=== PATIENT | male | born 1965 | race Caucasian/White ===

== ENCOUNTER 2021-10-16 19:34 | Day surgery (SDC) | payer OTHER ==
[2021-10-16] MEDS ORDERED: PERCOCET TABLET 5/325MG PO ONE (19:44)
--- NOTE | 2021-10-16 19:48 | ERPHSYRPT ---
- History of Present Illness Time Seen by Provider: 10/16/21 19:38 Source: patient, family Physician History: 45 years old male with history of alcohol abuse with frequent falls presented in the ER with chief complaint of left ankle pain after he fell in the garage prior to arrival. Moderate to severe sharp pain with movements and palpation of left ankle. Also patient reports he fell this morning and hit his head without loss of consciousness. Patient is very anxious, does not want any work-up done as he is afraid of needles. Not willing to do CT head after prolonged counseling is agreeable doing CT head and x-rays but no other work-up. Denies injury anywhere else. He is not confused or altered at all. Timing/Duration: today, sudden Severity: moderate Modifying Factors: Improves With: immobilization. Worsens With: movement Associated Symptoms: denies symptoms Allergies/Adverse Reactions: Penicillins Allergy (Verified 10/16/21 19:37) Home Medications: Diltiazem HCl [Diltiazem 24Hr ER] 1 cap PO DAILY 10/16/21 [History] Losartan/Hydrochlorothiazide [Losartan-Hctz 50-12.5 mg Tab] 1 tab PO DAILY 10/16/21 [History] Omeprazole 1 cap PO DAILY 10/16/21 [History] - Review of Systems Constitutional: No Symptoms Eyes: No Symptoms Ears, Nose, & Throat: No Symptoms Respiratory: No Symptoms Cardiac: No Symptoms Abdominal/Gastrointestinal: No Symptoms Genitourinary Symptoms: No Symptoms Musculoskeletal: Deformity, Fall, Injury Skin: No Symptoms Neurological: No Symptoms Psychological: No Symptoms Endocrine: No Symptoms Hematologic/Lymphatic: No Symptoms Immunological/Allergic: No Symptoms - Nursing Vital Signs Nursing Vital Signs: Initial Vital Signs Temperature 98 F 10/16/21 19:39 Pulse Rate 81 10/16/21 19:39 Respiratory Rate 23 10/16/21 19:39 Blood Pressure 123/80 10/16/21 19:39 O2 Sat by Pulse Oximetry 100 10/16/21 19:39 Pain Scale Pain Intensity 5 - Physical Exam General Appearance: no apparent distress, alert Eye Exam: PERRL/EOMI, eyes nml inspection Ears, Nose, Throat Exam: normal ENT inspection, TMs normal, pharynx normal, moist mucous membranes Neck Exam: normal inspection, non-tender, supple, full range of motion Respiratory Exam: normal breath sounds, lungs clear Cardiovascular Exam: regular rate/rhythm, normal heart sounds Gastrointestinal/Abdomen Exam: soft, normal bowel sounds, No tenderness Back Exam: normal inspection, normal range of motion Extremity Exam: deformities (Left ankle. Intact distal neurovascular. No foot tenderness.), inflammation, limited range of motion, swelling, tenderness Neurologic Exam: alert, oriented x 3, cooperative, machine oiler II-XII nml as tested, sensation nml, other (Left forehead bruising.), No normal mood/affect, No motor deficits Skin Exam: normal color SpO2 Interpretation: normal SpO2: 96 O2 Delivery: Room Air Ordered Tests: Active Orders 24 hr Category Date Time Status NPO (ED) STAT Care 10/16/21 21:34 Active ANKLE (2V) Routine Exams 10/16/21 21:55 Ordered ANKLE (3 VIEWS) Stat Exams 10/16/21 20:08 Completed FLUOROSCOPY UP TO 1 HR Routine Exams 10/16/21 21:55 Ordered HEAD WITHOUT CONTRAST [CT] Stat Exams 10/16/21 19:43 Taken LOWER LEG Stat Exams 10/16/21 Taken Alcohol [ETHYL ALCOHOL] Stat Lab 10/16/21 22:00 Completed CBC W DIFF Stat Lab 10/16/21 22:00 Completed CMP Stat Lab 10/16/21 22:00 Completed UA W/RFX CULTURE Stat Lab 10/16/21 21:58 Ordered Medication Summary Generic Name Dose Route Start Last Admin Trade Name Freq PRN Reason Stop Dose Admin Sodium Chloride 1,000 mls @ 999 mls/hr 10/16/21 21:34 10/16/21 21:54 Sodium Chloride 0.9% 1000 Ml IV 10/16/21 22:34 999 mls/hr .Q1H1M STA Administration Discontinued Medications Generic Name Dose Route Start Last Admin Trade Name Freq PRN Reason Stop Dose Admin Sodium Chloride Confirm 10/16/21 21:52 Sodium Chloride 0.9% 1000 Ml Administered 10/16/21 21:53 Dose 1,000 mls @ ud .ROUTE .STK-MED ONE Morphine Sulfate 4 mg 10/16/21 22:00 10/16/21 22:06 Morphine Sulfate 4 Mg/Ml Injection IV 10/16/21 22:01 4 mg STAT ONE Administration Morphine Sulfate Confirm 10/16/21 22:03 Morphine Sulfate 4 Mg/Ml Injection Administered 10/16/21 22:04 Dose 4 mg .ROUTE .STK-MED ONE Ondansetron HCl 4 mg 10/16/21 22:00 10/16/21 22:05 Ondansetron Hcl 4 Mg/2 Ml Vial IV 10/16/21 22:01 4 mg STAT ONE Administration Ondansetron HCl Confirm 10/16/21 22:03 Ondansetron Hcl 4 Mg/2 Ml Vial Administered 10/16/21 22:04 Dose 4 mg .ROUTE .STK-MED ONE Oxycodone/Acetaminophen 1 tab 10/16/21 19:44 10/16/21 20:08 Oxycodone Hcl/Apap 5 Mg/325 Mg Tablet PO 10/16/21 19:45 Not Given STAT ONE Oxycodone/Acetaminophen Confirm 10/16/21 19:58 Oxycodone Hcl/Apap 5 Mg/325 Mg Tablet Administered 10/16/21 19:59 Dose 1 tab .ROUTE .STK-MED ONE Lab/Rad Data: Laboratory Result Diagrams 10/16/21 22:00 10/16/21 22:00 Laboratory Results 10/16/21 10/16/21 10/16/21 Range/Units 22:00 22:00 22:00 WBC 11.8 H (4.0-10.5) x10^3/uL RBC 3.80 L (4.1-5.6) x10^6/uL Hgb 12.6 (12.5-18.0) g/dL Hct 34.6 L (42-50) % MCV 91.1 (78-100) fL MCH 33.2 H (26-32) pg MCHC 36.4 H (32-36) g/dL RDW 12.4 (11.5-14.0) % Plt Count 296 (150-450) x10^3/uL MPV 8.1 (7.5-11.0) fL Gran % 77.9 H (36.0-66.0) % Immature Gran % (Auto) 0.5 H (0.00-0.4) % Nucleat RBC Rel Count 0.0 (0.00-0.1) % Eos # (Auto) 0.06 (0-0.5) x10^3/uL Immature Gran # (Auto) 0.06 H (0.00-0.03) x10^3u/L Absolute Lymphs (auto) 1.70 (1.0-4.6) x10^3/uL Absolute Monos (auto) 0.73 (0.0-1.3) x10^3/uL Absolute Nucleated RBC 0.00 (0.00-0.01) x10^3u/L Lymphocytes % 14.4 L (24.0-44.0) % Monocytes % 6.2 (0.0-12.0) % Eosinophils % 0.5 (0.00-5.0) % Basophils % 0.5 (0.0-0.4) % Absolute Granulocytes 9.19 H (1.4-6.9) x10^3/uL Basophils # 0.06 (0-0.4) x10^3/uL Sodium 123 L (137-145) mmol/L Potassium 3.6 (3.5-5.1) mmol/L Chloride 90 L (98-107) mmol/L Carbon Dioxide 18 L (22-30) mmol/L Anion Gap 19.4 H (5-15) MEQ/L BUN 12 (9-20) mg/dL Creatinine 0.96 (0.66-1.25) mg/dL Estimated GFR > 60.0 ML/MIN Glucose 107 H (74-106) mg/dL Calcium 8.9 (8.4-10.2) mg/dL Total Bilirubin 0.30 (0.2-1.3) mg/dL AST 34 (17-59) U/L ALT 27 (0-50) U/L Alkaline Phosphatase 51 (38-126) U/L Serum Total Protein 6.8 (6.3-8.2) g/dL Albumin 4.3 (3.5-5.0) g/dL Ethyl Alcohol 233 H (0-10) mg/dL - Progress Progress: pain not gone completely, re-examined Progress Note: 10/16/21 22:33 55 years old is evaluated for fall. Patient was reluctant to have any blood work done. I have obtained CT head which is negative for any acute trauma related findings. Nonfocal neuro exam otherwise. Patient did drink quite a bit today. Has deformity of left ankle with fracture distal fibula and dislocation, has intact distal neurovascular. Discussed with Dr. Agustin who is planning on taking patient to the OR. I have discussed with patient and convinced him about the surgery. We will obtain baseline labs and patient will be taken to the OR. Discussed with : Other Counseled pt/family regarding: diagnosis, need for follow-up, rad results - Departure Departure Disposition: Release to OR/SDC Clinical Impression: Fracture dislocation of ankle joint, Fall, Forehead contusion, Alcohol abuse Condition: Stable Critical Care Time: No Referrals: DOCTOR,NO FAMILY [NON-STAFF PHY W/O PRIVILEGES] - Follow up/PCP as directed
[2021-10-16] MEDS ORDERED: PERCOCET TABLET 5/325MG ONE (19:58)
--- NOTE | 2021-10-16 20:18 | XRAY ---
Indication: Pain following fall. Comparison: None 3 views left ankle demonstrates mild displaced lateral malleolus fracture with soft tissue swelling. Also mild subluxation of talus laterally. No other bony, articular, or soft tissue abnormalities.
[2021-10-16] MEDS ORDERED: Sodium Chloride 0.9% 1000 ML 1,000 ML IV STA (21:34)
[2021-10-16] MEDS ORDERED: Sodium Chloride 0.9% 1000 ML 1,000 ML ONE ×2 (21:52→23:22)
[2021-10-16] MEDS ORDERED: MORPHINE SULFATE 4 MG INJ IV ONE (22:00)
[2021-10-16] MEDS ORDERED: Zofran 4 MG/2 ML VIAL IV ONE (22:00)
[2021-10-16 22:03] LABS: Absolute Neutrophil Ct (ANC) 9.19 x10^3/uL (1.4-6.9); Basophil (Absolute #) 0.06 x10^3/uL (0-0.4); Eosinophil % 0.5 % (0.00-5.0); Eosinophil (Absolute #) 0.06 x10^3/uL (0-0.5); Hematocrit 34.6 % (42-50); Hemoglobin 12.6 g/dL (12.5-18.0); Lymphocytes % 14.4 % (24.0-44.0); Mean Cell Volume 91.1 fL (78-100); Mean Corpuscular Hemoglobin 33.2 pg (26-32); Mean Corpuscular Hgb Concent. 36.4 g/dL (32-36); Mean Platelet Volume 8.1 fL (7.5-11.0); Monocyte (Absolute #) 0.73 x10^3/uL (0.0-1.3); Monocytes % 6.2 % (0.0-12.0); Neutrophil % 77.9 % (36.0-66.0); Platelet Count 296 x10^3/uL (150-450); Red Cell Distribution Width 12.4 % (11.5-14.0); White Blood Count 11.8 x10^3/uL (4.0-10.5)
[2021-10-16] MEDS ORDERED: Zofran 4 MG/2 ML VIAL ONE (22:03)
[2021-10-16] MEDS ORDERED: MORPHINE SULFATE 4 MG INJ ONE (22:03)
[2021-10-16 22:23] LABS: ALBUMIN 4.3 g/dL (3.5-5.0); ALKALINE PHOSPHATASE 51 U/L (38-126); ANION GAP 19.4 MEQ/L (5-15); BLOOD UREA NITROGEN 12 mg/dL (9-20); CHLORIDE 90 mmol/L (98-107); Calcium 8.9 mg/dL (8.4-10.2); Carbon Dioxide 18 mmol/L (22-30); Creatinine 1 0.96 mg/dL (0.66-1.25); EST GLOMERULAR FILTRATION RATE > 60.0 ML/MIN; Glucose 107 mg/dL (74-106); Potassium 3.6 mmol/L (3.5-5.1); SGOT/AST 34 U/L (17-59); SGPT/ALT 27 U/L (0-50); SODIUM 123 mmol/L (137-145); Total Protein 6.8 g/dL (6.3-8.2)
[2021-10-16 22:41] LABS: INFLUENZA A NEGATIVE (NEGATIVE); INFLUENZA B NEGATIVE (NEGATIVE); RESPIRATORY SYNCTIAL VIRUS NEGATIVE (Negative); SARS-CoV-2 Xpert Express NEGATIVE (NEGATIVE)
[2021-10-16 22:49] LABS: Appearance CLEAR (CLEAR); Bilirubin NEGATIVE (NEGATIVE); Dipstick done @ ? MAIN LAB; Glucose NEGATIVE (NEGATIVE); Ketones NEGATIVE (NEGATIVE); Nitrite NEGATIVE (NEGATIVE); Ph 5.5 (5-6); Protein,Urine Dip 30 (Negative); RBC TRACE-LYSED Ery/ul (0-5); Specific Gravity 1.015 (1.005-1.025); Urobilinogen 0.2 mg/dL (0-1)
[2021-10-16 22:52] LABS: Mucus SLIGHT /HPF (NEGATIVE); RBC 0-2 /HPF (0-2); WBC 0-2 /HPF (0-5)
[2021-10-16 22:53] LABS: Urine Cultured Indicated? YES
[2021-10-16] MEDS ORDERED: Naropin 0.5% 30 ML VIAL ONE (23:08)
[2021-10-16] MEDS ORDERED: Decadron 4 MG INJ ONE ×2 (23:08→23:14)
[2021-10-16] MEDS ORDERED: SUBLIMAZE 100 MCG/2 ML ONE (23:16)
[2021-10-16] MEDS ORDERED: Versed 2 MG/2 ML Injection ONE (23:16)
[2021-10-16] MEDS ORDERED: Marcaine 0.5%/Epinephrine 10 ML IJ ONE (23:36)
[2021-10-17] MEDS ORDERED: Cleocin Phosphate IV 600 MG/4 ML ONE (00:06)
[2021-10-17] MEDS ORDERED: DIPRIVAN 200 MG/20 ML IV ONE (01:08)
[2021-10-17] MEDS ORDERED: NICODERM CQ 14 MG TOP SCH (02:00)
[2021-10-17] MEDS ORDERED: KEFZOL 1 GM/50 ML PREMIX** 1 GM/50 ML IVPB IV ONE (06:00)
[2021-10-17 07:09] VITALS: BP 148/77; PULSE 99; O2SAT 95
--- NOTE | 2021-10-17 07:31 | XRAY ---
Indication: Pain following fall. Comparison: None 2 view left lower leg demonstrates lateral malleolus fracture reported separately. No other bony, articular, or soft tissue abnormalities.
--- NOTE | 2021-10-17 07:34 | XRAY ---
Indication: ORIF left ankle fracture. Intraoperative fluoroscopy provided for 1 minute 27 seconds. 3 digital spot images submitted for interpretation demonstrates lateral fixation plate and multiple screws fixating lateral malleolus fracture in good apposition/alignment. Talar subluxation improved. Correlate with intraoperative findings/report.
--- NOTE | 2021-10-17 07:36 | XRAY ---
Indication: Frontal contusion following fall. Seizures. Multiple contiguous axial images obtained through the head without contrast. Comparison: None Age-appropriate global atrophy and minimal periventricular degenerative micro-ischemia bilaterally. No acute intracranial hemorrhage, abnormal extra-axial fluid collection, or mass effect. Fourth ventricle is midline without hydrocephalus. Bony calvarium intact. Mild mucosal thickening both ethmoid/maxillary sinuses. Mastoid air cells are clear. Impression: Nonacute senile brain. Incidental paranasal sinus disease. Comment: Preliminary interpretation made by [facility]. No critical discrepancy.
[2021-10-17] MEDS ORDERED: Ecotrin 325 MG PO SCH ×2 (10:00)
[2021-10-18] MEDS ORDERED: NICODERM CQ 14 MG TOP SCH ×2 (02:00→22:00)
--- NOTE | 2021-10-19 09:15 | XRAY ---
1 min 27 seconds fluoroscopy time in surgery for left ankle repair.
--- NOTE | 2021-10-19 10:30 | OP ---
SURGERY DATE/TIME: 10/17/2021 0004 PREOPERATIVE DIAGNOSES: 1) Left bimalleolar equivalent ankle fracture with medial clear space widening. 2) Syndesmotic disruption. POSTOPERATIVE DIAGNOSES: 1) Left bimalleolar equivalent ankle fracture with medial clear space widening. 2) Syndesmotic disruption. PROCEDURES: 1) Open reduction internal fixation of left ankle bimalleolar ankle fracture equivalent. 2) Syndesmotic reduction. SURGEON: Vamsi Barnard DPM. PHOTO GRAPHICS LIBRARIAN: None. ANESTHESIA: Preoperative regional block femoral and adductor canal. HEMOSTASIS: Pressure dressing and electrocautery. ESTIMATED BLOOD LOSS: Less than 20 cc. MATERIALS: Tori left anatomic locking plate 6-hole with a combination of locking and nonlocking screws and a 50 mm 3.5 mm syndesmotic reduction screw. INJECTABLES: See anesthesia report for injectables. INDICATION FOR SURGERY: Sav Mendosa is a very pleasant 56-year-old male who presented to the emergency room after a fall that resulted in immediate pain to the left ankle. The patient indicated that he has recently been suffering a significant amount of seizures that has become increasingly problematic. Earlier this morning he did suffer a seizure in which he fell and hit his forehead. Later on this evening is when the fall resulting in ankle fracture occurred. The patient indicates that he was unable to bear weight and there was gross deformity of the extremity. He presented to the emergency department accompanied by his at that time. The patient refused conscious sedation for reduction and splinting in the emergency department. I was called and it was of note that the patient did have a nonpalpable posterior tibial pulse however palpable dorsalis pedis pulse in more concerning fashion there was skin tinting at the medial malleolus due to the deformity. The patient was presented options. Given the patient's ETOH status, he was not a good candidate for general or monitored anesthesia care. After discussion with the patient, the patient decided to proceed with regional block in order to perform the surgery within a timely manner. It is with that the patient understands all risks, complications and benefits of the procedure including but not limited to delayed skin healing, delayed wound healing, possibility of nonunion, possibility of delayed union and possibility of malunion of the fracture site. There is also the possibility of hardware failure and possibility of need for repeat surgical intervention at a later date. He understands all of this and wishes to proceed with surgical intervention at this time. Plenty of time was allowed for the patient to ask questions which were answered to the patient's apparent satisfaction. The patient is a chronic alcohol abuser and because of this postoperatively we have decided to hold the patient postoperatively for assessment from a medical standpoint and to insure he is sober when he goes home. The patient agreed to this reluctantly. It is with that he decided to proceed. DESCRIPTION OF PROCEDURE AND FINDINGS: The patient was brought to the postoperative anesthesia care unit from emergency department and a femoral and adductor canal block was performed at this time providing anesthesia to the left lower extremity. At this time the patient was brought into the OR and placed on the OR table in the supine position. The left lower extremity was prepped and draped in the typical sterile fashion. At this time attention was directed to the lateral aspect where gross deformity was identified of the foot and gentle distraction was able to return the ankle to its normal position this is checked under fluoroscopy and was not anatomical however sufficient to proceed with incision and placement planning. Lateral view on fluoroscopy was identified and a [place] was utilized to identify the fracture site. An incision was made at the posterior border of the fibula at this time using a combination of blunt and sharp dissection in order to get down to the level of the bone and the fracture. At this time copious amounts of sterile saline were utilized to flush the surgical suite. Dental pick was utilized to clean out the hematoma. At this time the fracture was identified and a bone reduction forceps was utilized to reduce the fracture. At this time a Tori anatomic locking plate was introduced from distal to proximal. The distal locking screws were introduced first and then the proximal screws were then placed this was checked under fluoroscopy on mortise view. It was identified that the fibula out to length respecting dime sign and Shentons line. The ankle mortise at this time was then stressed and there was deemed to be motion within the syndesmosis with external rotation the foot on the fibula. At this time the decision to proceed with syndesmotic reduction was performed. A tenaculum was placed on the anterior colliculus of the medial malleolus, the plate and reduction and compression was performed through the site. At this time a 3.5 x 50 mm screw was introduced under fluoroscopic guidance and deemed to be in an adequate position. Once again the ankle was stressed and at this time no longer any laxity was identified. At this time copious amounts of sterile saline were utilized to flush the surgical site. 2-0 Vicryl was then utilized to coapt the subcutaneous tissue in a simple interrupted-type fashion and a number of skin cinthia were utilized to close the skin in everted-type fashion. At this time the left lower extremity was cleansed with a wet lap and then dried. A dressing consisting of Betadine, Adaptic, 4x4 and Kerlix was then applied and a well-padded posterior splint with Sugar-Tong was introduced to the patient's left ankle holding the foot orthogonal to the longitudinal access of the long bones of the leg. At this time the patient was returned to the postoperative anesthesia care unit with vital signs stable and vascular status intact. The patient handled the procedure without complication as well as the regional block without complication. Postoperative orders as indicated in the patient's discharge as well as observation chart. The patient was significantly intoxicated on arrival and will be held for observation until he is sober enough to go home.
== END 2021-10-17 08:30 | disposition home or self-care (01) ==
LOC: ED 19:34 → SDC 23:35 → MED SURG 10-17 01:45 → SDC 10-17 08:30
PROVIDERS: ATTEND Podiatrist Foot & Ankle Surgery
DX: S82.842A Displaced bimalleolar fracture of left lower leg, initial encounter for closed fracture (principal); S93.432A Sprain of tibiofibular ligament of left ankle, initial encounter; W18.30XA Fall on same level, unspecified, initial encounter; F41.9 Anxiety disorder, unspecified; S00.83XA Contusion of other part of head, initial encounter; Z79.899 Other long term (current) drug therapy; Z20.828 Contact with and (suspected) exposure to other viral communicable diseases
CPT/HCPCS: 0241U; 27814; 27829; 36415; 70450; 73590; 73610; 76000; 76942; 80053; 81015; 85025; 87086; 96374; 96375; 99284; C1713; G0480; 64447; 64450; 64488; 76937; 80307; 99140; J0690; J1100; J2250; J2270; J2405; J2704; J2795; J3010; A9270-GY